=== PATIENT | female | born 1955 | race African-American/Black ===

== ENCOUNTER 2019-11-14 11:14 | Emergency (ER) | payer OTHER ==
[~2019-11-14] VITALS: Ht 167.6 cm; Wt 102.1 kg
[2019-11-14 11:31] VITALS: BP 177/85
--- NOTE | 2019-11-14 11:43 | Emergency Room Report ---
History of Present Illness General Chief Complaint: Pain Source: Patient Present Illness HPI Patient is a 64-year-old female past medical history of injury to her left knee who presents to the ER complaining of left knee pain for 1 month. Patient states that she twisted it about a month ago and reinjured her knee. She complains of pain and swelling to her knee. She states the pain is also to the back of her knee. She denies any fever or chills. She denies any nausea or vomiting. She denies any chest pain or shortness of breath. Patient states that she tried heat and ice and meloxicam for the pain. She states meloxicam helps her pain. She states that heat made it worse. She states that the ice made it feel more stiff. Allergies: Coded Allergies: No Known Allergies (Unverified , 11/14/19) COVID-19 Screening Contact w/high risk pt: No Experienced COVID-19 symptoms?: No COVID-19 Testing performed [employer]: No Patient History Last Menstrual Period: na Reviewed Nursing Documentation: PMH: Agreed; PSxH: Agreed Nursing Documentation-PMH Past Medical History: No History, Except For Hx Hypertension: Yes Review of Systems All Other Systems: negative except mentioned in HPI Physical Exam Vital Signs Date Time Temp Pulse Resp B/P (MAP) Pulse Ox O2 Delivery O2 Flow Rate FiO2 11/14/19 11:23 98.8 82 17 181/89 (119) 98 Room Air Sp02 EP Interpretation: reviewed, normal General Appearance: no apparent distress, alert, GCS 15, non-toxic Head: normocephalic, atraumatic Eyes: bilateral eye normal inspection, bilateral eye PERRL ENT: hearing grossly normal, normal pharynx, no angioedema, normal voice Neck: full range of motion, supple/symm/no masses Respiratory: chest non-tender, lungs clear, normal breath sounds, speaking full sentences Cardiovascular #1: regular rate, rhythm, no edema Gastrointestinal: normal bowel sounds, non tender, soft, non-distended, no guarding, no rebound Rectal: deferred Musculoskeletal: other - Left knee diffuse swelling and tenderness no erythema , 2+ pedal pulses, normal range of motion, posterior knee tenderness to palpation as well. 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 Ultrasound demonstrates no evidence for DVT. X-ray demonstrates no acute fractures or malalignment. There is what appears to be an old avulsion of the patella. Patient advised to keep her left lower extremity elevated and ice when at home. I the patient a knee immobilizer but she states that she prefers to just have an Ferny wrap and a cane. I have ordered both for her. She will follow-up with her orthopedist for further treatment and evaluation and MRI. I have given her a copy of her ultrasound and x-ray results. After discussing risks and benefits of further diagnostics, treatment plans, as well as indications for and risks of admission, the patient is agreeable to being discharged home. I have explained that their evaluation and treatment in the emergency department today is an important step towards them achieving better health but that their evaluation today is not intended to replace further evaluation and treatment by a physician in their local clinic. I have explained that while the current findings suggest no immediate life threatening emergency they will require further evaluation and treatment by a physician of their choice in their area. They understand that it will be necessary for them to review the final reports of their ED visit with their clinic physician. We have reviewed indications for return to the Emergency Department. I have explained that additional time may need to pass and/or additional testing as an outpatient may be necessary before a definitive diagnosis can be made. They tell me they are willing to follow up as instructed within the timeframe I recommend. They appear to understand what we discussed. Additionally they understand that if they are unable to be seen by an outpatient physician they are welcome, and in fact should, return to the Emergency Department for a repeat evaluation. The patient is stable at time of discharge. Other X-Ray Diagnostic Results Other X-Ray Diagnostic Results : X-Ray ordered: Left Knee # of Views/Limited Vs Complete: 3 View Indication: Pain EP Interpretation: Yes Interpretation: no dislocation, no fractures, other - Foreign body Impression: No acute disease - Old avulsion of the patella Electronically Signed by: Destinee Cardenas MD Last Vital Signs Date Time Temp Pulse Resp B/P (MAP) Pulse Ox O2 Delivery O2 Flow Rate FiO2 11/14/19 11:31 98.8 72 17 177/85 98 Room Air Disposition: HOME, SELF-CARE Condition: Stable Scripts Naproxen* (NAPROSYN*) 250 Mg Tablet 250 MG ORAL TID PRN for For Pain, #20 TAB 0 Refills Prov: Destinee Cardenas M.D. 11/14/19 Additional Instructions: The patient was provided with discharge instructions, notified to follow-up with a primary care doctor and or specialist in the next 24-48 hours, and to return to the ED if they have worsening of their symptoms. Please note that this report is being documented using [employer] technology. This can lead to erroneous entry secondary to incorrect interpretation by the dictating instrument. Destinee Cardenas M.D. Nov 14, 2019 11:43
[2019-11-14] MEDS ORDERED: Ketorolac 60mg Inj IM ONE (11:45)
[2019-11-14 11:56] VITALS: BP 155/91
[2019-11-14 12:47] VITALS: BP 148/89
--- NOTE | 2019-11-14 13:16 | Diagnostic Imaging Report ---
EXAM: ULTRASOUND Venous Duplex Lower Ext Uni CLINICAL HISTORY: Leg pain and edema. History of left leg injury. COMPARISON: None TECHNIQUE: Doppler examination include grayscale images obtained with and without compression, and color and spectral doppler analysis. FINDINGS: Doppler examination shows normal spontaneity, phasicity, compressibility in the left lower extremity. There is no thrombus identified by grayscale. Normal color and spectral flow is identified. There is no evidence of valvular incompetency or insufficiency. There is a small left knee joint effusion. IMPRESSION: NO EVIDENCE OF DVT. SMALL LEFT JOINT EFFUSION.
--- NOTE | 2019-11-14 13:19 | Diagnostic Imaging Report ---
EXAM: X-RAY XRAY Knee 3v LT CLINICAL HISTORY: Trauma with knee pain. COMPARISON: None FINDINGS: Total of 3 views of the left knee were obtained. Alignment is anatomic. There is no acute fracture, bony lesions or erosions. There is a well-corticated ossific fragment at the inferior pole of the patella perhaps an old avulsion type injury. Osteoarthritis noted with joint space narrowing and early osteophyte formation. There is a small joint effusion. Surrounding soft tissue is normal. IMPRESSION: NO ACUTE FRACTURE OR MALALIGNMENT. SMALL WELL-CORTICATED OSSIFIC FRAGMENT ADJACENT TO THE INFERIOR POLE OF THE PATELLA WHICH MAY BE AN OLD AVULSION TYPE INJURY. MILD DEGENERATIVE CHANGE AND SMALL JOINT EFFUSION.
[2019-11-14] MEDS ORDERED: NAPROXEN250 MG ORAL (13:21)
[2019-11-14] MEDS ORDERED: MELOXICAM7.5 MG PO (13:29)
[2019-11-14 13:30] VITALS: BP 145/93
== END 2019-11-14 13:30 | disposition home or self-care (01) ==
LOC: EMR 12:12
DX: S83.92XA Sprain of unspecified site of left knee, initial encounter (principal); X50.1XXA Overexertion from prolonged static or awkward postures, initial encounter; Y92.9 Unspecified place or not applicable; I10 Essential (primary) hypertension
CPT/HCPCS: 93971; 96372; 99284